=== PATIENT | male | born 1970 | race Two or more races ===

== ENCOUNTER 2019-02-04 14:07 | Emergency (ER) | payer OTHER ==
[~2019-02-04] VITALS: Ht 182.9 cm; Wt 99.8 kg
== END 2019-02-04 17:06 | disposition home or self-care (01) ==
LOC: ER 14:07
DX: S61.226A Laceration with foreign body of right little finger without damage to nail, initial encounter (principal); W45.8XXA Other foreign body or object entering through skin, initial encounter; Y93.89 Activity, other specified; Y92.89 Other specified places as the place of occurrence of the external cause; Y99.8 Other external cause status

== ENCOUNTER 2019-03-14 15:05 | Emergency (ER) | payer OTHER ==
[~2019-03-14] VITALS: Ht 182.9 cm; Wt 98.9 kg
== END 2019-03-14 19:48 | disposition home or self-care (01) ==
LOC: ER 15:05
DX: M25.521 Pain in right elbow (principal)

== ENCOUNTER 2019-04-03 09:40 | Outpatient (CLI) | payer OTHER | END 2019-04-03 09:48 | disposition home or self-care (01) | LOC: RAD 501 09:40 | DX: M79.641 Pain in right hand (principal) ==

== ENCOUNTER 2019-08-21 14:09 | Outpatient (CLI) | payer OTHER | END 2019-08-21 14:10 | disposition home or self-care (01) | LOC: RAD 14:09 | DX: C49.11 Malignant neoplasm of connective and soft tissue of right upper limb, including shoulder (principal) ==